=== PATIENT | female | born 1990 | race Native Hawaiian/Other Pacific Islander ===

== ENCOUNTER 2019-07-03 13:28 | Outpatient (CLI) | payer OTHER ==
[2019-07-03 14:19] LABS: POTASSIUM 3.6 mmol/L (3.6-5.2); SODIUM 140 mmol/L (136-145)
== END 2019-07-03 22:29 | disposition home or self-care (01) ==
LOC: LAB 13:28
PROVIDERS: Nurse Practitioner Family
DX: R10.30 Lower abdominal pain, unspecified (principal); N94.6 Dysmenorrhea, unspecified
CPT/HCPCS: 80053; 82150; 83690; 84702